=== PATIENT | female | born 1975 | race Caucasian/White ===

== ENCOUNTER 2017-03-10 21:57 | Emergency (ER) | payer OTHER ==
[2017-03-10 22:24] VITALS: BP 155/96; PULSE 95; TEMP 98.6; BMI 36.0
--- NOTE | 2017-03-10 23:10 | PDOC ---
History of Present Illness - General Chief Complaint: Foreign Body (FB) Stated Complaint: EVALUATION Time Seen by Provider: 03/10/17 22:42 History Source: Patient - History of Present Illness Initial Comments: 03/10/17 23:07 41 year old female reports tampon stuck, unable to retrieve tampon from today. denies pelvic pain, urinary symptoms. Past History - Past Medical History Allergies/Adverse Reactions: Allergies Allergy/AdvReac Type Severity Reaction Status Date / Time ANESTHESIA AdvReac "ITCHINESS/ Uncoded 09/05/14 14:05 VOMITING" Home Medications: Ambulatory Orders Oxycodone HCl/Acetaminophen [Percocet 7.5-325 mg Tablet] 1 - 2 tab PO Q6H Anemia: No Asthma: No Cancer: No Cardiac Disorders: No CVA: No COPD: No CHF: No Dementia: No Diabetes: No GI Disorders: No Disorders: No HTN: No Hypercholesterolemia: No Liver Disease: No Seizures: No Thyroid Disease: No Other medical history: Pt denies - Surgical History Abdominal Surgery: No Appendectomy: No Cardiac Surgery: No Cholecystectomy: No Lung Surgery: No Neurologic Surgery: No Orthopedic Surgery: No - Suicide/Smoking/Psychosocial Hx Smoking History: Never smoked Have you smoked in the past 12 months: No If you are a former smoker, when did you quit?: 7YRS AGO Information on smoking cessation initiated: No Hx Alcohol Use: No Drug/Substance Use Hx: No Substance Use Type: None Review of Systems - Review of Systems Able to Perform ROS?: Yes Is the patient limited Vietnamese proficient: No Constitutional: No: Symptoms Reported, See HPI, Chills, Diaphoresis, Fever, Loss of Appetite, Malaise, Night Sweats, Weakness, Weight Stable, Unintentional Wgt. Loss, Unexplained wgt Loss, Other : Yes: Other (foreignbody in vagina) *Physical Exam - Vital Signs Last Vital Signs Temp Pulse Resp BP Pulse Ox 98.6 F 95 H 20 155/96 100 03/10/17 22:14 03/10/17 22:14 03/10/17 22:14 03/10/17 22:14 03/10/17 22:14 - Physical Exam General Appearance: Yes: Appropriately Dressed Female Pelvic Exam: positive: normal external exam, vaginal bleeding, other (no foreign body noted in vaginal vault. cervix closed) Medical Decision Making - Medical Decision Making 03/10/17 23:17 A; r/o foreign body P: vaginal exam. no foreign body visualized *DC/Admit/Observation/Transfer Diagnosis at time of Disposition: Foreign body in vagina Qualifiers: Encounter type: initial encounter Qualified Code(s): T19.2XXA - Foreign body in vulva and vagina, initial encounter - Discharge Dispostion Disposition: HOME - Referrals Referrals: Oscar Pinon [Primary Care Provider] - - Patient Instructions Printed Discharge Instructions: DI for Foreign Body in Vagina-Adult
== END 2017-03-10 23:30 | disposition home or self-care (01) ==
LOC: JER 21:57 → JERFT 21:57 → JER 23:30
DX: T19.2XXA Foreign body in vulva and vagina, initial encounter (principal); X58.XXXA Exposure to other specified factors, initial encounter; Y93.89 Activity, other specified; Y92.038 Other place in apartment as the place of occurrence of the external cause
CPT/HCPCS: 99281-25

== ENCOUNTER 2017-12-14 14:22 | Emergency (ER) | payer OTHER ==
[2017-12-14 14:49] VITALS: BP 158/81; PULSE 89; TEMP 98.7; BMI 36.8
[2017-12-14] MEDS ORDERED: KETOROLAC TROMETHAMINE 60 MG/2 ML VIAL IM ONE (15:00)
--- NOTE | 2017-12-14 15:03 | PDOC ---
History of Present Illness - General Chief Complaint: Back Pain Stated Complaint: INJURY/FALL Time Seen by Provider: 12/14/17 14:48 History Source: Patient Exam Limitations: No Limitations - History of Present Illness Initial Comments: 12/14/17 15:00 42 yr female slipped and fell on wet floor at [employer] today pt states. She injured her low back. Pt has history of herniated disc to the low back. no head trauma no LO no dizzyness. Occurred: reports: just prior to arrival Severity: reports: mild Pain Location: reports: back Method of Injury: Yes: fall Past History - Past Medical History Allergies/Adverse Reactions: Allergies Allergy/AdvReac Type Severity Reaction Status Date / Time ANESTHESIA AdvReac "ITCHINESS/ Uncoded 12/14/17 14:44 VOMITING" Home Medications: Ambulatory Orders Naproxen [Naprosyn] 500 mg PO BID #14 tablet 12/14/17 Anemia: No Asthma: No Cancer: No Cardiac Disorders: No CVA: No COPD: No CHF: No Dementia: No Diabetes: No GI Disorders: No Disorders: No HTN: No Hypercholesterolemia: No Liver Disease: No Seizures: No Thyroid Disease: No Other medical history: chronic back pain - Surgical History Abdominal Surgery: No Appendectomy: No Cardiac Surgery: No Cholecystectomy: No Lung Surgery: No Neurologic Surgery: No Orthopedic Surgery: No - Suicide/Smoking/Psychosocial Hx Smoking History: Former smoker Have you smoked in the past 12 months: No If you are a former smoker, when did you quit?: 7YRS AGO Information on smoking cessation initiated: No Hx Alcohol Use: No Drug/Substance Use Hx: No Substance Use Type: None Review of Systems - Review of Systems Able to Perform ROS?: Yes Is the patient limited Ukrainian proficient: No Constitutional: No: Symptoms Reported HEENTM: No: Symptoms Reported Respiratory: No: Symptoms reported Cardiac (ROS): No: Symptoms Reported ABD/GI: No: Symptoms Reported : No: Symptoms Reported Musculoskeletal: Yes: Symptoms Reported, Back Pain *Physical Exam - Vital Signs Last Vital Signs Temp Pulse Resp BP Pulse Ox 98.7 F 89 20 158/81 99 12/14/17 14:45 12/14/17 14:45 12/14/17 14:45 12/14/17 14:45 12/14/17 14:45 - Physical Exam General Appearance: Yes: Nourished, Appropriately Dressed, Obese HEENT: positive: EOMI, ALICJA Neck: positive: Supple. negative: Tender, Tender lateral, Tender midline Respiratory/Chest: positive: Lungs Clear, Normal Breath Sounds. negative: Chest Tender Cardiovascular: positive: Regular Rhythm, Regular Rate Gastrointestinal/Abdominal: positive: Normal Bowel Sounds, Soft Musculoskeletal: positive: Normal Inspection, Vertebral Tenderness (lumbar spine to the left lower paraspinal soft tissue neg numbness or tingling ). negative: CVA Tenderness (R), CVA Tenderness (L) Extremity: positive: Normal Capillary Refill, Normal Inspection, Normal Range of Motion Integumentary: positive: Normal Color, Dry, Warm, Other (skin intact to lower back no signs of trauma ). negative: Ecchymosis, Bruising Medical Decision Making - Medical Decision Making 12/14/17 15:01 cc: slip and fall on low back injured low back no head trauma no loc pt denies is currently menstruating has no diff urinating no saddle anesthesia will give toradol xray pt ambulating steady gait no distress 12/14/17 16:00 12/14/17 16:48 *DC/Admit/Observation/Transfer Diagnosis at time of Disposition: Back injury Qualifiers: Encounter type: initial encounter Qualified Code(s): S39.92XA - Unspecified injury of lower back, initial encounter - Discharge Dispostion Disposition: HOME Condition at time of disposition: Good - Prescriptions Prescriptions: Naproxen [Naprosyn] 500 mg PO BID #14 tablet - Referrals Referrals: Lucius Silveira MD [Primary Care Provider] - - Patient Instructions Additional Instructions: apply ice to lower back every 2hrs for 20 minutes for the next 2 days apply Icy Hot topical rubbing cream to the low back take naprosyn for pain as needed please follow with your doctor this week for follow up - Post Discharge Activity
[2017-12-14 15:43] LABS: URINE APPEARANCE SLCLOUDY; URINE BILIRUBIN NEGATIVE (<2.0 mg/dL); URINE COLOR YELLOW; URINE GLUCOSE (UA) NEGATIVE (NEGATIVE); URINE KETONE NEGATIVE (NEGATIVE); URINE LEUK ESTERASE NEGATIVE (NEGATIVE); URINE NITRITE NEGATIVE (NEGATIVE); URINE UROBILINOGEN NEGATIVE mg/dL (0.2-1.0)
[2017-12-14] MEDS ORDERED: KETOROLAC TROMETHAMINE 60 MG/2 ML VIAL ONE (15:45)
[2017-12-14 15:46] LABS: HCG,QUALITATIVE URINE NEGATIVE
[2017-12-14 15:48] LABS: URINE PROTEIN 1+ (NEGATIVE)
[2017-12-14 16:01] LABS: EPI CELLS RARE /HPF (FEW); URINE MUCUS RARE
== END 2017-12-14 16:09 | disposition home or self-care (01) ==
LOC: JERFT 14:22
PROC: 3E0233Z Introduction of Anti-inflammatory into Muscle, Percutaneous Approach (ICD-10-PCS; principal; 2017-12-14)
DX: S39.82XA Other specified injuries of lower back, initial encounter (principal); W01.0XXA Fall on same level from slipping, tripping and stumbling without subsequent striking against object, initial encounter; Y93.89 Activity, other specified; Y92.512 Supermarket, store or market as the place of occurrence of the external cause; Y99.8 Other external cause status
CPT/HCPCS: 72100-TC-FY; 81003; 81015; 84703; 99281-25

== ENCOUNTER 2018-04-17 16:04 | Emergency (ER) | payer OTHER ==
[2018-04-17 16:32] VITALS: TEMP 99; BMI 36.8
--- NOTE | 2018-04-17 16:33 | PDOC ---
Rapid Medical Evaluation Chief Complaint: Pain Time Seen by Provider: 04/17/18 16:28 Medical Evaluation: Allergies Allergy/AdvReac Type Severity Reaction Status Date / Time ANESTHESIA AdvReac "ITCHINESS/ Uncoded 04/17/18 16:27 VOMITING" 04/17/18 16:28 Pt presents for R elbow and forearm pain. Pt states this has been going on for three days. 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 TTP of the R elbow Orders: EKG Pt to proceed to ED for further evaluation Discharge Disposition - Diagnosis Elbow pain, right - Referrals - Patient Instructions - Post Discharge Activity
[2018-04-17] MEDS ORDERED: SODIUM CHLORIDE 1,000 ML IV STA (17:54)
[2018-04-17] MEDS ORDERED: KETOROLAC TROMETHAMINE 15 MG/ML VIAL IVPUSH ONE (17:54)
[2018-04-17] MEDS ORDERED: KETOROLAC TROMETHAMINE 15 MG/ML VIAL ONE (18:19)
[2018-04-17 18:22] LABS: BASO % 0.4 % (0-2.0); EOS % 0.5 % (0-4.5); HEMATOCRIT 40.8 % (32.4-45.2); HEMOGLOBIN 13.5 GM/dL (10.7-15.3); LYMPH % 31.2 % (8-40); MCH 26.9 pg (25.7-33.7); MCHC 33.1 g/dl (32.0-36.0); MEAN CELL VOLUME 81.3 fl (80-96); MEAN PLT VOLUME 7.2 fl (7.5-11.1); MONO % 7.7 % (3.8-10.2); NEUT % 60.2 % (42.8-82.8); PLATELET COUNT 305 K/MM3 (134-434); RBC 5.02 M/mm3 (3.60-5.2); WHITE BLOOD COUNT 6.7 K/mm3 (4.0-10.0)
--- NOTE | 2018-04-17 18:28 | PDOC ---
Attending Attestation - Resident Resident Name: Jagdish Quinn - ED Attending Attestation I have performed the following: I have examined & evaluated the patient, The case was reviewed & discussed with the resident, I agree w/resident's findings & plan, Exceptions are as noted - HPI HPI: 04/17/18 18:22 The patient is a 43-year-old female with past medical history significant for Arthritis (Knee and back) and Herniated discs presents to the emergency department with 3 days R. elbow pain. The patient states it is exacerbated with the movement of the arm. Denies any falls or trauma. 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 The patient denies any fever, chills, stiffness to the joint, swelling to the joint, numbness, tingling, loss of sensation. Pt denies CP/SOB. Allergies: Anesthesia. Social history: Former smoker, No past or present use of alcohol or recreational drugs. Surgical history: None reported PCP: Oscar Pinon - Physicial Exam PE: 04/17/18 18:24 GENERAL: Awake, alert, and fully oriented, in no acute distress. HEAD: No signs of trauma EYES: PERRLA, EOMI, sclera anicteric, conjunctiva clear ENT: Auricles normal inspection, hearing grossly normal, nares patent, oropharynx clear without exudates. Moist mucosa NECK: Nontender, no stepoffs, Normal ROM, supple, no lymphadenopathy, JVD, or masses LUNGS: Breath sounds equal, clear to auscultation bilaterally. No wheezes, and no crackles HEART: Regular rate and rhythm, normal S1 and S2, no murmurs, rubs or gallops ABDOMEN: Soft, nontender, normoactive bowel sounds. No guarding, no rebound. No masses EXTREMITIES: + R elbow with mild pain with supination and flexion, no joint effusion, no erythema, no bony tenderness NEUROLOGICAL: Cranial nerves II through XII intact. 5/5 strength and sensation in all extremities, Normal speech, normal gait, normal cerebellar function SKIN: Warm, Dry, normal turgor, no rashes or lesions noted. - Medical Decision Making 04/17/18 18:25 43 F with elbow pain x 3 days. Likely tendonitis 2/2 repetitive lifting. Pt noted to be hypertensive and tachycardic in ED. Possibly 2/2 pain. Pt with no F/ C or other signs of septic arthritis. No CP/SOB to suggest DVT/PE. - Labs - Pain control - Reassess 04/17/18 19:58 Labs wnl Pt reassessed - vitals now normalized s/p pain meds and fluids. Pt is well appearing, with normal vitals. Clinically stable for DC at this time. I discussed the physical exam findings, ancillary test results and final diagnoses with the patient. I answered all of the patient's questions. The patient was satisfied with the care received and felt comfortable with the discharge plan and treatment plan. The patient agrees to follow up with the primary care physician within 24-72 hours.
[2018-04-17 18:37] VITALS: BP 107/67; PULSE 97
--- NOTE | 2018-04-17 18:58 | PDOC ---
*Physical Exam - Vital Signs Last Vital Signs Temp Pulse Resp BP Pulse Ox 99.0 F 97 H 18 107/67 96 04/17/18 16:28 04/17/18 18:36 04/17/18 18:36 04/17/18 18:36 04/17/18 18:36 <Kristian Dickson - Last Filed: 04/17/18 19:54> - Vital Signs Last Vital Signs Temp Pulse Resp BP Pulse Ox 99.0 F 97 H 18 107/67 96 04/17/18 16:28 04/17/18 18:36 04/17/18 18:36 04/17/18 18:36 04/17/18 18:36 <Prakash Fulton - Last Filed: 04/19/18 16:37> Heart Score/ECG Review - ECG Intrepretation Rhythm: Regular Rhythm - Comerio Comerio: Normal - P and IN Delta Wave(s) Present: No WPW: No - ECG Impressions Normal ECG: No Non-specific ST Elevation: No Ischemic Changes: No Tachycardia: Sinus WPW: No Comment:: Sinus tachycardia with a ventricular rate of 112 BPM. <Prakash Fulton - Last Filed: 04/19/18 16:37> ED Treatment Course - LABORATORY CBC & Chemistry Diagram: 04/17/18 18:00 04/17/18 18:00 - ADDITIONAL ORDERS Additional order review: Laboratory Results 04/17/18 18:00 Sodium 139 Potassium 4.3 Chloride 103 Carbon Dioxide 27 Anion Gap 9 BUN 12 Creatinine 0.9 Creat Clearance w eGFR > 60 Random Glucose 189 H Calcium 9.0 Total Bilirubin 0.4 AST 19 ALT 38 Alkaline Phosphatase 66 Total Protein 7.0 Albumin 3.8 TSH 1.15 Beta HCG, Quant < 1.0 04/17/18 18:00 RBC 5.02 MCV 81.3 MCHC 33.1 RDW 14.0 MPV 7.2 L Neutrophils % 60.2 Lymphocytes % 31.2 D Monocytes % 7.7 Eosinophils % 0.5 Basophils % 0.4 <Kristian Dickson - Last Filed: 04/17/18 19:54> - LABORATORY CBC & Chemistry Diagram: 04/17/18 18:00 04/17/18 18:00 - ADDITIONAL ORDERS Additional order review: 04/17/18 18:00 RBC 5.02 MCV 81.3 MCHC 33.1 RDW 14.0 MPV 7.2 L Neutrophils % 60.2 Lymphocytes % 31.2 D Monocytes % 7.7 Eosinophils % 0.5 Basophils % 0.4 <Prakash Fulton - Last Filed: 04/19/18 16:37> Medical Decision Making - Medical Decision Making 04/17/18 18:54 Received sign out from resident Dr. Quinn. In short, pt is a 43 y /o female complaining of right proximal forearm pain suspected to be secondary to occupational repetitive use injury. Incidentally, the pt was found to be tachycardic and hypertensive on arrival. Suspect opiate withdrawal as pt is prescribed chronic opiates versus possible thyroid disorder. Pt is receiving IVFB. Will reassess after bolus is complete. Will follow up on TSH and beta- quant. 04/17/18 19:15 Pt re-examined. States her elbow pain has improved. Discussed normal laboratory results. Pt expressed verbal understanding. Prescription sent for Naproxen for temporary pain relief. Encouraged pt to follow up elevated blood pressure reading with PCP as outpatient. Discussed laboratory and physical exam findings with pt. Answered all questions. Provided return precautions. Pt expressed verbal understanding and agreement with plan to discharge home with outpatient follow up. <FultonPrakash - Last Filed: 04/19/18 16:37> *DC/Admit/Observation/Transfer <RandolphKristian - Last Filed: 04/17/18 19:54> - Discharge Dispostion Decision to Admit order: No <Prakash Fulton - Last Filed: 04/19/18 16:37> Diagnosis at time of Disposition: Elbow pain, right, Tachycardia with heart rate 100-120 beats per minute - Discharge Dispostion Disposition: HOME Condition at time of disposition: Stable - Prescriptions Prescriptions: Naproxen [Naprosyn -] 500 mg PO BID PRN 7 Days #14 tablet PRN Reason: Pain - Referrals Referrals: Karla Silveira [Primary Care Provider] - Guerrero Cuellar MD [Staff Physician] - - Patient Instructions Printed Discharge Instructions: DI for Elbow Pain Additional Instructions: Call the number provided to make an appointment with our orthopedic surgeon to have your elbow pain further evaluated. Avoid doing any strenuous exercise or lifting any heavy weights with your arm. I have sent an electronic prescription for Naproxen to your pharmacy. Take it as directed on the package insert. Do not exceed the recommended dose. Do not take this other NSAID medications. If you experience worsening pain, swelling, redness, or any other concerning symptoms, return to the ER immediately. You also need to have your blood pressure re-checked by your primary doctor, as it was slightly elevated today. Uncontrolled blood pressure can eventually lead to kidney disease, heart disease, other serious illness, disability, or even . Print Language: WALLISIAN - Post Discharge Activity
[2018-04-17 19:03] LABS: ALBUMIN 3.8 g/dl (3.4-5.0); ALK PHOS 66 U/L (45-117); ANION GAP 9 MMOL/L (8-16); BILIRUBIN,TOTAL 0.4 mg/dL (0.2-1); BLOOD UREA NITROGEN 12 mg/dL (7-18); CHLORIDE 103 mmol/L (98-107); CO2 27 mmol/L (22-28); CREATININE 0.9 mg/dL (0.55-1.3); GLUCOSE,RANDOM 189 mg/dL (74-106); POTASSIUM 4.3 mmol/L (3.5-5.1); SGOT/AST 19 U/L (15-37); SGPT/ALT 38 U/L (13-61); SODIUM 139 mmol/L (136-145)
--- NOTE | 2018-04-17 19:04 | PDOC ---
History of Present Illness - General Chief Complaint: Pain Stated Complaint: RT ELBOW PAIN Time Seen by Provider: 04/17/18 16:28 History Source: Patient Exam Limitations: No Limitations - History of Present Illness Initial Comments: 04/17/18 18:54 Ms. Collier is a 43 yo F with a hx of herniated disk and arthritis in the lower back and right knee presenting to the emergency department with right proximal forearm pain that has been ongoing for 3 days. She denies recent trauma or an inciting event. She states the pain is constant and is not relieved with her home percocet and muscle relaxants (name unknown by patient). She endorses having full ROM of the right elbow and denies fever, chills, paresthesias in the hand/wrist, loss of sensation, loss of muscular strength, and swelling. On presentation, her HR was 116. She denies dehydration, substance abuse. Endorses increased stress. Denies the following: fever, chills, visual changes, chest pain, SOB, nausea, vomiting, abdominal pain, dysuria, hematuria, melena, hematochezia. Pmhx: Refer to above Shx: None Meds: Percocet and 2x muscle relaxants (unknown name to the patient) Allergies: anesthesia Social hx: Denies tobacco, alcohol, and substance abuse. Past History - Past Medical History Allergies/Adverse Reactions: Allergies Allergy/AdvReac Type Severity Reaction Status Date / Time ANESTHESIA Allergy Mild Hives Uncoded 04/17/18 18:55 Home Medications: Ambulatory Orders Naproxen [Naprosyn -] 500 mg PO BID PRN 7 Days #14 tablet 04/17/18 Anemia: No Asthma: No Cancer: No Cardiac Disorders: No CVA: No COPD: No CHF: No Dementia: No Diabetes: No GI Disorders: No Disorders: No HTN: No Hypercholesterolemia: No Liver Disease: No Seizures: No Thyroid Disease: No - Surgical History Abdominal Surgery: No Appendectomy: No Cardiac Surgery: No Cholecystectomy: No Lung Surgery: No Neurologic Surgery: No Orthopedic Surgery: No - Immunization History Immunization Up to Date: Yes - Suicide/Smoking/Psychosocial Hx Smoking History: Never smoked Have you smoked in the past 12 months: No If you are a former smoker, when did you quit?: 7YRS AGO Information on smoking cessation initiated: No Hx Alcohol Use: No Drug/Substance Use Hx: No Substance Use Type: None Review of Systems - Review of Systems Able to Perform ROS?: Yes Is the patient limited Lao proficient: No Constitutional: No: Chills, Diaphoresis, Fever, Unexplained wgt Loss HEENTM: No: Recent change in vision, Ear Pain, Nose Pain, Throat Pain, Mouth Pain Respiratory: No: Cough, Shortness of Breath Cardiac (ROS): No: Chest Pain ABD/GI: No: Constipated, Diarrhea, Nausea, Rectal Bleeding, Vomiting, Tarry Stools : No: Burning, Dysuria, Hematuria Musculoskeletal: Yes: Back Pain, Joint Pain (right elbow), Muscle Pain (right forearm). No: Joint Stiffness Integumentary: No: Bruising, Erythema, Lesions, Rash Neurological: No: Headache, Numbness, Paresthesia, Weakness, Ataxia, Dizziness Psychiatric: No: Stressors Endocrine: No: Unexplained Weight Gain Hematologic/Lymphatic: No: Anemia *Physical Exam - Vital Signs Last Vital Signs Temp Pulse Resp BP Pulse Ox 99.0 F 97 H 18 107/67 96 04/17/18 16:28 04/17/18 18:36 04/17/18 18:36 04/17/18 18:36 04/17/18 18:36 - Physical Exam General Appearance: Yes: Nourished, Appropriately Dressed HEENT: positive: EOMI, ALICJA Neck: positive: Trachea midline. negative: Tender, Lymphadenopathy (R), Lymphadenopathy (L) Respiratory/Chest: positive: Lungs Clear, Normal Breath Sounds. negative: Chest Tender, Respiratory Distress, Accessory Muscle Use Cardiovascular: positive: Regular Rhythm, S1, S2, Tachycardia. negative: Systolic Murmur Gastrointestinal/Abdominal: positive: Normal Bowel Sounds. negative: Tender Lymphatic: negative: Adenopathy Musculoskeletal: positive: Normal Inspection. negative: CVA Tenderness Extremity: positive: Normal Capillary Refill, Normal Inspection, Normal Range of Motion, Tender (right forearm proximal on lateral aspect. ). negative: Coldness, Cyanosis, Delayed Capillary Refill, Swelling Integumentary: positive: Normal Color, Dry, Warm. 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 Collier is a 43 yo F with a hx of herniated disk and arthritis in the lower back and right knee presenting to the emergency department with right proximal forearm pain that has been ongoing for 3 days. Initial vitals: Initial Vital Signs Temp Pulse Resp BP Pulse Ox 99.0 F 116 H 16 183/97 H 98 04/17/18 16:28 04/17/18 16:28 04/17/18 16:28 04/17/18 16:28 04/17/18 16:28 Patient presents with right forearm pain likely consistent with tennis elbow given that it worsens with movement and she does repetitive lifting and movements with it. However she presented with 116 HR. She denies withdrawing from her opiates and denies drug use. She denies dehydration. Concerns for the tachycardia possibly secondary to vascular (PE/DVT vs hypovolemia) vs endocrine (TSH) vs infectious etiology (viral vs bacterial) vs withdrawal. Will give her 1 liter of NS and toradol for pain management and reassess vitals after finishing. CBC, CMP, beta hcg, TSH Laboratory Tests 04/17/18 04/17/18 18:00 18:00 WBC 6.7 RBC 5.02 Hgb 13.5 Hct 40.8 MCV 81.3 MCH 26.9 MCHC 33.1 RDW 14.0 Plt Count 305 MPV 7.2 L Absolute Neuts (auto) 4.0 Neutrophils % 60.2 Lymphocytes % 31.2 D Monocytes % 7.7 Eosinophils % 0.5 Basophils % 0.4 Nucleated RBC % 0 Sodium 139 Potassium 4.3 Chloride 103 Carbon Dioxide 27 Anion Gap 9 BUN 12 Creatinine 0.9 Creat Clearance w eGFR > 60 Random Glucose 189 H Calcium 9.0 Total Bilirubin 0.4 AST 19 ALT 38 Alkaline Phosphatase 66 Total Protein 7.0 Albumin 3.8 TSH 1.15 Beta HCG, Quant < 1.0 Patient was signed out to Dr. Fulton at shift change. *DC/Admit/Observation/Transfer Diagnosis at time of Disposition: Elbow pain, right, Tachycardia with heart rate 100-120 beats per minute - Discharge Dispostion Disposition: HOME Condition at time of disposition: Stable - Prescriptions Prescriptions: Naproxen [Naprosyn -] 500 mg PO BID PRN 7 Days #14 tablet PRN Reason: Pain - Referrals Referrals: Guerrero Cuellar MD [Staff Physician] - Karla Silveira [Primary Care Provider] - - Patient Instructions Printed Discharge Instructions: DI for Elbow Pain Additional Instructions: Call the number provided to make an appointment with our orthopedic surgeon to have your elbow pain further evaluated. Avoid doing any strenuous exercise or lifting any heavy weights with your arm. I have sent an electronic prescription for Naproxen to your pharmacy. Take it as directed on the package insert. Do not exceed the recommended dose. Do not take this other NSAID medications. If you experience worsening pain, swelling, redness, or any other concerning symptoms, return to the ER immediately. You also need to have your blood pressure re-checked by your primary doctor, as it was slightly elevated today. Uncontrolled blood pressure can eventually lead to kidney disease, heart disease, other serious illness, disability, or even . Print Language: [place] - Post Discharge Activity
--- NOTE | 2018-04-19 19:16 | EKG ---
Test Reason : Blood Pressure : / mmHG Vent. Rate : 112 BPM Atrial Rate : 112 BPM P-R Int : 146 ms QRS Dur : 070 ms QT Int : 336 ms P-R-T Axes : 056 035 002 degrees QTc Int : 458 ms SINUS TACHYCARDIA BASELINE ARTIFACT WHEN COMPARED WITH ECG OF 21-MAY-2014 13:24, T WAVE VARIATION Confirmed by MIREYA PEARL MD ([id number]) on 04/19/2018 7:15:32 PM Referred By: Confirmed By:MIREYA PEARL MD
== END 2018-04-17 20:49 | disposition home or self-care (01) ==
LOC: JER 16:04
PROC: 3E0333Z Introduction of Anti-inflammatory into Peripheral Vein, Percutaneous Approach (ICD-10-PCS; principal; 2018-04-17)
DX: M25.521 Pain in right elbow (principal); R00.0 Tachycardia, unspecified; I10 Essential (primary) hypertension; X50.3XXA Overexertion from repetitive movements, initial encounter; Y93.89 Activity, other specified; Y92.89 Other specified places as the place of occurrence of the external cause; Y99.0 Civilian activity done for income or pay
CPT/HCPCS: 36415; 80053; 84443; 84702; 85025; 93005; 93010; 96374; 99282-25; J7030

== ENCOUNTER 2020-08-25 16:32 | Emergency (ER) | payer OTHER ==
[2020-08-25 16:43] VITALS: BP 127/72; PULSE 107; TEMP 98.2; BMI 36.8
[2020-08-25] MEDS ORDERED: KETOROLAC TROMETHAMINE 30 MG/1 ML VIAL IM ONE (16:56)
[2020-08-25] MEDS ORDERED: KETOROLAC TROMETHAMINE 30 MG/1 ML VIAL ONE (16:59)
== END 2020-08-25 17:21 | disposition home or self-care (01) ==
LOC: JER 16:32 → JERFT 16:32
PROC: 3E0233Z Introduction of Anti-inflammatory into Muscle, Percutaneous Approach (ICD-10-PCS; principal; 2020-08-25)
DX: M25.561 Pain in right knee (principal)
CPT/HCPCS: 73562-TC-RT-FY; 99284-25

== ENCOUNTER 2021-11-02 12:59 | Emergency (ER) | payer OTHER ==
[2021-11-02 13:11] VITALS: BP 138/76; PULSE 86; TEMP 98.7; BMI 37.3
[2021-11-02] MEDS ORDERED: KETOROLAC TROMETHAMINE 30 MG/1 ML VIAL IM ONE (13:36)
[2021-11-02] MEDS ORDERED: KETOROLAC TROMETHAMINE 30 MG/1 ML VIAL ONE (13:46)
== END 2021-11-02 14:10 | disposition home or self-care (01) ==
LOC: JERFT 12:59
PROC: 3E023GC Introduction of Other Therapeutic Substance into Muscle, Percutaneous Approach (ICD-10-PCS; principal; 2021-11-02)
DX: M25.562 Pain in left knee (principal)
CPT/HCPCS: 73562-TC-LT-FY; 99284-25

== ENCOUNTER 2025-02-28 06:29 | Day surgery (SDC) | payer OTHER ==
[2025-02-24 18:07] VITALS: BMI 33.5
[2025-02-28] MEDS ORDERED: PROPOFOL 20 ML ONE (08:59)
[2025-02-28] MEDS ORDERED: DEXAMETHASONE SOD PHOSPHATE 4 MG/1 ML VIAL ONE (08:59)
[2025-02-28] MEDS ORDERED: MIDAZOLAM HCL 2 MG/2 ML SINGLE DOSE VIAL ONE (08:59)
[2025-02-28] MEDS ORDERED: ONDANSETRON 4 MG/2 ML VIAL ONE ×2 (08:59→11:38)
[2025-02-28] MEDS: ceFAZolin 2 GRAM PREMIX BAG IVPB ONE ×2 (09:14)
[2025-02-28] MEDS: ONDANSETRON 4 MG/2 ML VIAL IVPUSH PRN (11:39)
[2025-02-28] MEDS: LACTATED RINGERS SOLUTION 1,000 ML IV SCH (12:03)
[2025-02-28 12:35] VITALS: RESP 20
[2025-02-28 12:47] VITALS: BP 97/65; PULSE 63; TEMP 97.3
== END 2025-02-28 12:47 | disposition home or self-care (01) ==
LOC: JASU-SURG 06:29
PROVIDERS: ATTEND Urology
PROC: 0TC78ZZ Extirpation of Matter from Left Ureter, Via Natural or Artificial Opening Endoscopic (ICD-10-PCS; principal; 2025-02-28 09:00)
PROC: 0T778DZ Dilation of Left Ureter with Intraluminal Device, Via Natural or Artificial Opening Endoscopic (ICD-10-PCS; 2025-02-28 09:00)
DX: N13.2 Hydronephrosis with renal and ureteral calculous obstruction (principal)
CPT/HCPCS: 76000-TC-FY; 82962; 94760; C1747; C1758; C1769; C2617